=== PATIENT | female | born 1945 | race Two or more races ===

== ENCOUNTER 2023-01-05 10:29 | Outpatient (CLI) | payer OTHER | END 2023-01-05 10:32 | disposition home or self-care (01) | LOC: SONOGRAMA 10:29 | PROVIDERS: ATTEND Pathology Anatomic Pathology & Clinical Pathology | DX: D44.0 Neoplasm of uncertain behavior of thyroid gland (principal); D34 Benign neoplasm of thyroid gland; E07.9 Disorder of thyroid, unspecified; E04.1 Nontoxic single thyroid nodule ==